=== PATIENT | male | born 1990 | race Two or more races ===

== ENCOUNTER 2020-08-29 09:50 | Outpatient (REF) | payer OTHER, SELFPAY | END 2020-08-29 09:51 | disposition home or self-care (01) | LOC: HO.LAB 09:50 | PROVIDERS: Visit Provider Internal Medicine | DX: Z20.822 Contact with and (suspected) exposure to COVID-19 (principal) | CPT/HCPCS: 36415; C9803; U0003; U0005 ==

== ENCOUNTER 2020-09-24 09:34 | Outpatient (REF) | payer OTHER, SELFPAY | END 2020-09-24 09:35 | disposition home or self-care (01) | LOC: HO.LAB 09:34 | PROVIDERS: Visit Provider Internal Medicine | DX: Z20.822 Contact with and (suspected) exposure to COVID-19 (principal) | CPT/HCPCS: 36415; C9803; U0003; U0005 ==

== ENCOUNTER 2021-06-03 07:21 | Outpatient (REF) | payer OTHER, SELFPAY ==
[2021-06-03 08:01] LABS: COVID-19 Test Negative (Negative)
== END 2021-06-03 07:22 | disposition home or self-care (01) ==
LOC: HO.LAB 07:21
PROVIDERS: Visit Provider Internal Medicine
DX: Z20.822 Contact with and (suspected) exposure to COVID-19 (principal)
CPT/HCPCS: 36415; 87635; C9803